=== PATIENT | female | born 1970 | race Caucasian/White ===

== ENCOUNTER → 2022-07-01 12:14 | Outpatient (CLI) | payer BC, SELFPAY ==
--- NOTE | ~2022-07-01 | MM_ITS ---
EXAMINATION: MM screening ollie BI w shweta HISTORY: Screening mammogram TECHNIQUE: Craniocaudal and mediolateral oblique 3-D tomosynthesis images were obtained and synthetic 2-D images were generated. CAD analysis was submitted and interpreted. COMPARISON: Numerous diagnostic right mammogram and complete right breast ultrasound BREAST PARENCHYMAL COMPOSITION: The breasts are heterogeneously dense, which may obscure small masses . FINDINGS: Stable fibroglandular asymmetry. There is no evidence of suspicious mass, calcification, or architectural distortion to suggest malignancy in either breast. There has been no suspicious interv al change. IMPRESSION: 1. No mammographic evidence of malignancy. 2. Recommend routine screening mammography in one year. BI-RADS Category 2: Benign finding(s). Reviewed, dictated and finalized at location A.
--- NOTE | ~2022-07-01 | DEXA_ITS ---
Bone Density Report Name: SAVANAH SANCHEZ I Age: 51 Sex: Female Ethnicity: White Date of : 1970 Indication: postmenopausal; screening for osteoporosis; height loss; Referring Provider: TAHIRA, IRIS Study: Bone densitometry was performed. Exam Date: July 01, 2022 Accession number: [id number] Bone Density: Region BMD T-score Z-score Classification AP Spine (L1-L4) 0.903 -1.3 -0.4 Osteopenia Femoral Neck (Left) 0.678 -1.5 -0.6 Osteopenia Total Hip (Left) 0.855 -0.7 -0.1 Normal Femoral Neck (Right) 0.713 -1.2 -0.3 Osteopenia Total Hip (Right) 0.903 -0.3 0.3 Normal Total Hip Mean 0.879 -0.5 0.1 Normal World Health Organization criteria for BMD impression classify patients as: Normal (T-score at or above -1.0), Osteopenia (T-score between -1.0 and -2.5), or Osteoporosis (T-score at or below -2.5). 10-year Fracture Risk(1): Major Osteoporotic Fracture 6.8% Hip Fracture 1.1% Reported Risk Factors: [place] (), Neck BMD=0.678, BMI=30.5, smoking, alcohol use (1) FRAX(R) Version 3.08. Fracture probability calculated for an untreated patient. Fracture probability may be lower if the patient has received treatment. Clinical Information Provided by Patient: Smokes Has 3 or more alcoholic drinks per day Patient maximum height was 64 Menopause Age: 47 No regular weight bearing exercise Drinks caffeinated beverages Onset of menses at age 12 Number of children 2 Impression: The patient has low bone mass, based on the Left Femoral Neck T-score. The patient has an estimated ten-year risk of hip fracture of 1.1% and an estimated ten-year risk of major fracture of 6.8%, based on the WHO FRAX algorithm. The patient has risk factors, including: smoking, excessive alcohol use. Discussion: BONE DENSITY IS LOW AT ONE OR MORE SKELETAL SITES. This patient's lowest T-score is low at one or more skeletal sites. It meets the World Health Organization's (WHO) criteria for ?low bone mass? (T-score between -1.0 and -2.5). The patient's 10-year risk of fracture as calculated by FRAX is less than the threshold where pharmacological therapy is recommended by the National Osteoporosis Foundation (NOF). However, all treatment decisions require clinical judgment and consideration of individual patient factors, including patient preferences, comorbidities, previous drug use, risk factors not captured in the FRAX model (e.g., frailty, falls, vitamin D deficiency, increased bone turnover, interval significant decline in bone density) and possible under or overestimation of fracture risk by FRAX. The patient should follow a healthful lifestyle (good nutrition with adequate calcium and vitamin D, and appropriate weight-bearing exercise). Follow-Up: Consider repeating this study in 2 to 3 years to reass
== END ==
PROVIDERS: PCP Family Medicine; Visit Provider Nurse Practitioner
DX: Z12.31 Encounter for screening mammogram for malignant neoplasm of breast (principal); Z78.0 Asymptomatic menopausal state; M85.88 Other specified disorders of bone density and structure, other site; M85.852 Other specified disorders of bone density and structure, left thigh; M85.851 Other specified disorders of bone density and structure, right thigh
CPT/HCPCS: 77063; 77067; 77080

== ENCOUNTER → 2022-08-26 14:43 | Outpatient (CLI) | payer BC, SELFPAY ==
--- NOTE | ~2022-08-26 | CT_ITS ---
EXAMINATION: CT abdomen pelvis wo con DATE: 08/26/2022 15:11 INDICATION: Ventral hernia without obstruction or gangrene TECHNIQUE: Computed tomography (CT) of the abdomen and pelvis was performed without intravenous contr ast. The dose-length product (DLP) was 791.25 mGy-cm. Automated exposure control and iterative recons truction technique were employed. COMPARISON: 01/11/2019, 07/05/2018 FINDINGS: The lung bases are clear. The heart size is normal. A 2.5 cm subcapsular mass in the right hepatic lobe has been previously demonstrated to represent hemangioma. The spleen, pancreas, gallblad sunitha, and adrenal glands are normal. The kidneys are unremarkable. No pathologically enlarged abdomina l or pelvic lymph nodes are identified. There is no free intraperitoneal gas or evidence of bowel obs truction. The appendix is normal. There is a small bowel surgical anastomosis in the left upper quadr ant. There is a small fat-containing midline ventral hernia with a 9 mm neck located 2.5 cm cranial t o the umbilicus. There is mild lumbar spondylosis. IMPRESSION: 1. Small fat-containing midline ventral hernia with a 9 mm neck located 2.5 cm cranial to the umbilic us. Reviewed, dictated and finalized at location B. UCT LEAD IMPRESSION: 1. Small fat-containing midline ventral hernia with a 9 mm neck located 2.5 cm cranial to the umbilicus.
== END ==
PROVIDERS: PCP Nurse Practitioner Family; Visit Provider Nurse Practitioner Family
DX: K43.9 Ventral hernia without obstruction or gangrene (principal)
CPT/HCPCS: 74176

== ENCOUNTER 2024-11-26 22:31 | Emergency (ER) | payer BC, SELFPAY ==
[2024-11-26] VITALS (7 sets, daily range): BP systolic 153–186; BP diastolic 93–97; PULSE 90–103; RESP 12–26; TEMP 36.4; O2SAT 100
--- NOTE | ~2024-11-26 | CT_ITS ---
CT of the Abdomen and Pelvis: Indication: Nausea, vomiting Technique: 2.5 mm axial scans were obtained through the abdomen and pelvis following intravenous adm inistration of 100 cc of Omnipaque 350. Dose reduction technique was used on this scan by utilizing a utomated exposure control and iterative reconstruction technique. The dose-length product (DLP) was 6 02.82 mGy-cm. COMPARISON: 08/26/2022 Findings: Scans through the lung bases are unremarkable. Stable hypodense lesion in the dome of liver with focal coarse calcification. Stable hypodense lesion peripherally in the right hepatic lobe measuring 2.4 cm in diameter (axial image 38). The spleen, pa ncreas, gallbladder, adrenals and kidneys are within normal limits. No evidence of aortic aneurysm. No lymphadenopathy. No bowel obstruction or bowel wall thickening. Small bowel anastomosis noted. Images through the pelvis were performed. Urinary bladder unremarkable. No pelvic mass seen. No ascit es. Impression: No acute abnormality evident. Stable hypodense hepatic lesions dating back to 2021, therefore most likely benign findings. Reviewed, dictated and finalized at location . N JOBS TRAINER Impression: No acute abnormality evident. Stable hypodense hepatic lesions dating back to 2021, therefore most likely elizabeth ign findings.
--- OUTSIDE RECORDS SUMMARY | 2024-11-26 22:32 | XMS_ITS | Data Portability ---
Author Organization [place] - [facility] [employer], Main Office Address [address] [place] [address] Assessment Encounter Date Assessment Date Assessment LastModified by Organization Details LastModified Time 01/28/2024 01/28/2024 the patient has recurrent bilateral knee pain and bilateral hip pain over the trochanteric bursa regions. She has trochanteric bursitis chronic in nature. Under sterile conditions I injected the patient's bilateral knee joints and the patient's bilateral hips into the trochanteric bursa with 4 cc 0.5% Marcaine and 20 mg of Kenalog each. The patient tolerated the procedures well. I will see her back as needed she will continue with current conservative measures call for any further problems difficulties or questions she voiced understanding agrees above plan. Not available 01/28/2024 12:05:24 04/04/2024 04/04/2024 R inguinal discomfort. No hernia defect or LAD appreciated on exam, but notable tenderness. Will order CT for further evaluation. Will f/u after results are obtained. Not available 04/04/2024 11:54:03 04/18/2024 04/18/2024 CT showed no hernia defect. Colonic narrowing with mesenteric LAD - recommended GI for colonoscopy. Patient was referred to GI. No indication for surgical intervention at this time. Likely MSK injury. RTC PRN if future concerns arise. Not available 04/18/2024 12:51:01 06/29/2024 06/29/2024 The patient has recurrent bilateral knee pain due to mild primary osteoarthritis with some narrowing of the medial and patellofemoral compartments. She has significant crepitation and chronic aching pain under sterile conditions I injected the patient's bilateral knee joints in the office with 4 cc 0.5% bupivacaine and 20 mg of Kenalog each. The patient tolerated procedures well. She also has chronic trochanteric bursitis both hips under sterile conditions I injected the patient's bilateral hips into the trochanteric bursa with 4 cc 0.5% bupivacaine and 20 mg of Kenalog each. The patient tolerated the procedures well. She will continue with current conservative measures call for any further problems difficulties or questions I will see her back as needed she voiced understanding and agrees with the above plan. Not available 06/29/2024 09:59:10 Plan of Treatment Reminders Order Date Submit Date Provider Last Modified By Organization Details Last Modified Time Details Appointments None recorded. Lab None recorded. Referral None recorded. Procedures injection/a spiration joint/bursa (PROC) - in office procedure, administere d by provider 2023 024 [email or web address] In-Office Order, Internal Use Only DO Not Attach Compendium DO Not Attach Compendium, Do Not Delete/merge, [id number] 11:22:24 injection/a spiration joint/bursa (PROC) - in office procedure, administere d by provider 2023 024 [email or web address] In-Office Order, Internal Use Only DO Not Attach Compendium DO Not Attach Compendium, Do Not Delete/merge, [id number] 11:22:24 colonoscopy procedure (PROC) 2023 024 [facility] (Pre-Screen), [address] [place], [address], 4 08:11:13 injection/a spiration joint/bursa (PROC) 2023 024 [email or web address] In-Office Order, Internal Use Only DO Not Attach Compendium DO Not Attach Compendium, Do Not Delete/merge, [id number] 4 09:42:39 injection/a spiration joint/bursa (PROC) 2023 024 [email or web address] In-Office Order, Internal Use Only DO Not Attach Compendium DO Not Attach Compendium, Do Not Delete/merge, [id number] 09:42:39 Surgeries None recorded. Imaging XR, knee 2023 [email or web address] [facility], [address], [place], [address], 4 10:53:35 Medication Orders Kenalog 10 mg/mL suspension for injection [address] [facility], [address] [place] [address], [address], 4 11:42:32 Marcaine (PF) 0.5 % (5 mg/mL) injection solution [address] [facility], [address] [place] [address], [address], 4 11:42:36 Kenalog 10 mg/mL suspension for injection [address] [facility], [address] [place] [address], [address], 4 11:42:32 Marcaine (PF) 0.5 % (5 mg/mL) injection solution [address] [facility], [address] [place] [address], [address], 4 11:42:36 Golytely 236 gram-22.74 gram-6.74 gram-5.86 gram oral solution 2023 024 NELLIE [facility], [address] [place] [address], [address], 4 12:25:14 bupivacaine HCl 0.5 % (5 mg/mL) injection solution 2023 024 [email or web address] [facility], [address] [place] [address], [place], [address], 4 10:01:29 Kenalog 10 mg/mL suspension for injection [address] [facility], [address] [place], [address], 4 10:01:29 bupivacaine HCl 0.5 % (5 mg/mL) injection solution [address] [facility], [address] [place], [address], 4 10:01:29 Kenalog 10 mg/mL suspension for injection [address] [facility], [address] [place] [address], [address], 4 10:01:29 Patient TargetsNo targets recorded. Patient Instructions Encounter Date Encounter Id Patient Instructions Last Modified By Organization Details Last Modified Time 06/21/2024 [id number] MÓNICA [email or web address] Not available 01/2024 11:50:08 PT WITH RLQ PAIN , ABNORMAL CT ABD . RECOMMEND A COLONOSCOPY . . Risks benefits and complications were explained to the pt. ( BLEEDING PERFORATION , INFECTION , ). PT VERBALIZES UNDERSTANDING AND IS WILLING TO PROCEDE . [email or web address] Not available 06/21/2024 11:50:42 Reason for Referral None Reported. Results Created Date Observation Date Name Description Value Unit Range Abnormal Flag Note LastModifiedBy Organization Detail LastModifiedTime 04/13/20 24 04/13/2024 CT, abdom en + pelvi s, w/o contr ast [facility] [address] [facility], [place] [address] Patien t Name: SAVANAH SANCHEZ ion #: [id number] Sex: F : 1970 2 Dictat ed By: Darryl Coto ms Attend ing Physic jade: JEN NIETO ng Physic jade: JEN NIETO Exam Date: 2023 09:40 AM Exam Name: CT ABDOME N PELVIS WO Admitt ing Diagno sis(es ): Exam: CT ABDOME N PELVIS WO Histor y: Abdome n pain Compar kari Study: CT of the abdome n pelvis dated 2021. Techni que: Multid etecto r spiral CT of the abdome n and pelvis was perfor med from lung bases to pubic symphy sis. Imagin g was perfor med withou t intrav enous contra st. Borden l and sagitt al multip lanar reform ats were obtain ed from the axial data set by the techno logist . Radiat ion Dose : 1. Abdome n/Pelv is: CTDIvo l 15.5 mGy, DLP 765.2 mGy*cm . Findin gs: Evalua tion of vascul ature and solid organs is limite d due to lack of intrav enous contra st use. Lung Bases: Lung bases are clear. Visual ized portio ns of the heart and perica rdium are unrema rkable . Liver: The liver measur es 18.3 cm in length . There is a 1.6 cm low attenu ating lesion in the right hepati c lobe. This is stable since prior CT from 2021. Gallbl adder and Biliar y Tree: The gallbl adder is unrema rkable No intrah epatic or extrah epatic biliar y ductal dilata tion. Spleen : Unrema rkable Page 1 [facility] [address] [address] Patien t Name: SAVANAH SANCHEZ Access ion #: [id number] Sex: F : 1970 2 Dictat ed By: Darryl Coto ms Attend ing Physic jade: TAHIR BURNETTE ng Physic jade: JEN NIETO Exam Date: 2023 09:40 AM Exam Name: CT ABDOME N PELVIS WO Admitt ing Diagno sis(es ): Pancre as: The pancre as is grossl y unrema rkable . Adrena l Glands : Unrema rkable Kidney s: Kidney s are unrema rkable withou t calcul i or hydron ephros is. GI tract: The stomac h is grossl y normal in appear ance. No eviden ce of small bowel wall thicke reid or abnorm al dilata tion to sugges t bowel obstru ction. There is contra st opacif icatio n of the small bowel loops, as well as the colon. Mild circum ferent ial narrow ing of the ascend ing colon. The append ix is normal in calibe r. Perito neum/m esente ry/ret roperi toneum . No eviden ce of free intrap eriton eal air. No ascite s. There is an increa sed number of mesent roc lymph nodes which are mildly promin ent, for exampl e in the right lower quadra nt measur ing up to 9 mm in short axis. Abdomi nal Wall: Unrema rkable . Vascul ature: The visual ized abdomi nal aorta is normal in size and calibe r. Evalua tion of abdomi nal and pelvic vessel s is limite d due to lack of intrav enous contra st. Urinar y Bladde r: Grossl y unrema rkable for degree of disten tion. Pelvic Organs : Unrema rkable Muscul oskele ana m: No aggres sive focal bony lesion s, acute fractu res or disloc ation. IMPRES MARYJANE: 1. Mild circum ferent ial narrow ing of the ascend ing colon may be due to underd istent ion. Howeve r, an underl helen lesion is not exclud ed. Correl ation with colono scopy is sugges vicki for more sensit sylvain evalua tion of the colon. 2. Increa sed number of mesent roc lymph nodes measur ing up to 9 mm in the right lower quadra nt. Metast atic adenop athy not exclud ed. 3. 1.6 cm low attenu ating lesion in the right hepati c lobe, stable since prior CT of the abdome n pelvis 2021. Electr onical ly Signed by: Darryl Coto ms at 2023 11:18: 36 AM Page [address] (Imaging) [address] [place], [address], 04/13/2024 12:49:00 04/13/20 24 04/13/2024 CT, abdom en + pelvi s, w/ contr ast No observ ation record ed. [address] [place], [address], 04/13/2024 12:48:29 06/29/20 24 XR, knee No observ ation record ed. [email or web address] [facility] [address], [place], [address], 06/29/2024 10:00:02 Result Notes None recorded. Problems Name Problem SNOMED Code Status Onset Date Resolution Date Notes Provider Name and Address Organization Details Recorded Time Contusion of left hip region 1271969830192 9102 Active 2021 Not Available [facility] 3 07:43:47 Bilateral trochanter ic bursitis 5140676894715 9109 Active 2021 Not Available [facility] 3 07:43:47 Bilateral hip joint pain 0105225395955 9100 Active 2021 Not Available [facility] 3 07:43:47 Chondromal acia of right patella 4395668325000 9108 Active 2021 Not Available [facility] 3 07:43:47 Gastroente ritis 67930889 Active Not Available [facility] 3 07:43:47 Acute low back pain 087338598 Active 2021 Not Available [facility] 3 07:43:47 Chondromal acia of left patella 7014111368751 06 Active 2021 Not Available [facility] 3 07:43:47 Strangulat ed hernia of anterior abdominal wall 036477095 Active Not Available [facility] 3 07:43:47 Pain of right knee joint 3603218443683 00 Active 2021 Not Available [facility] 3 07:43:47 Pain of left knee joint 5259811152634 07 Active 2021 Not Available [facility] 3 07:43:48 Hyperlipid emia 28915160 Active 2020 Not Available [facility] 3 07:43:48 Essential hypertensi on 63895459 Active 2020 Not Available [facility] 3 07:43:48 Bilateral osteoarthr itis of knees 3965568071124 07 Active 2022 Catalina guerra, [place] [facility] 3 09:28:57 Itching of skin 465775446 Active 2022 ENOCH Hylton [address], [place], [address] , [place] [facility] 3 18:03:59 Eruption 693307522 Active 2022 Supriya Middleton MD [address], [place], [address] , [place] [facility] 3 13:05:08 Right inguinal pain 0457416561461 9109 Active 2023 Logan dooley MD [address], [address], [place], [address] , [place] [facility] 4 12:30:25 Abdominal pain 62264506 Active 2023 Logan dooley MD [address], [place], [address] , [place] [facility] 4 14:30:27 CT of abdomen abnormal 6753994219670 9107 Active 2023 Jane Reyes MD [address], [place], [address] , [place] [facility] 4 11:49:38 Problem Notes None recorded. Procedures Surgical History Date Name Laterality Status Provider Name and Address Organization Details Recorded Time Hernia Surgery completed Not Available [facility] 12/16/2022 07:41:21 Hernia repair w/mesh completed Not Available [facility] 12/16/2022 07:41:21 section completed Not Available [facility] 12/16/2022 07:41:21 Imaging Results Imaging Date Name Status LastModified by Organiz ation Details LastModified Time 04/13/2024 CT, abdomen + pelvis, w/o contrast completed [address] (Imaging) [address] [place], [address], 04/13/2024 12:49:00 04/13/2024 CT, abdomen + pelvis, w/ contrast completed [address] [place], [address], 04/13/2024 12:48:29 06/29/2024 XR, knee completed [email or web address] [facility] [address] [facility] [address], [place], [address], 06/29/2024 10:00:02 Procedure Notes None recorded. Medical Equipment None Reported. Allergies Allergen ID Allergen Name Allergen Category Reaction Reaction Severity Criticality Documentation Date Start Date Code Code System Note Provider Name and Address Organization Details Recorded Time 21045 Dilantin medicatio n Not available Not available Not available 03/12/2023 0 RxNorm Fifi Shields RN [facility], [place] [facility] 08:58:32 Medications Name Sig Start Date Stop Date Status Note LastModified by Organization Details LastModified Time compounded medication Take one tab SL daily 06/21 completed Not Available Not Available Not Available compounded medication Dissolve one jonatan UNDER TONGUE in THE morning AND wait 30 minutes TO eat OR drink active Not Available Not Available No t Available semaglutide 500mcg methylcobal gilmore 0.1mg tabs TAKE ONE TABLET UNDER TONGUE DAILY 06/21 completed Not Available Not Available Not Available semaglutide 500mcg jonatan (0.5ml) Dissolve one jonatan UNDER TONGUE in THE morning AND wait 30 minutes TO eat OR drink 06/21 completed Not Available Not Available Not Available semaglutide 500mcg methylcobal gilmore 0.1mg jonatan (0.5ml) Dissolve one jonatan UNDER TONGUE in THE morning AND wait 30 minutes TO eat OR drink 06/21 completed Not Available Not Available Not Available compounded medication Take one tab SL daily 06/21 completed Not Available Not Available Not Available clonidine HCl 0.1 mg tablet 03/19 completed Not Available Not Available Not Available prednisone 10 mg tablet TAKE 1 TABLET BY MOUTH THREE TIMES DAILY FOR 3 DAYS, THEN TAKE 1 TAB TWICE DAILY FOR 2 DAYS, AND THEN TAKE 1 TAB ONCE DAILY FOR 1 DAY 05/25 completed Not Available Not Available Not Available atorvastati n 10 mg tablet 03/19 completed Not Available Not Available Not Available valacyclovi r 1 gram tablet TAKE 1 TABLET BY MOUTH EVERY 12 HOURS FOR 7 DAYS 06/21 completed Not Available Not Available Not Available meloxicam 15 mg tablet TAKE 1 TABLET BY MOUTH ONCE DAILY active Not Available Not Available No t Available ondansetron HCl 4 mg tablet 03/19 completed Not Available Not Available Not Available bupivacaine HCl 0.5 % (5 mg/mL) injection solution Take 40 mg by injection route. 2023 active Not Available Not Available Not Avai lable prednisone 20 mg tablet TAKE 3 TABLETS BY MOUTH ONCE DAILY FOR 3 DAYS, THEN TAKE 2 TABS ONCE DAILY FOR 3 DAYS, THEN TAKE 1 TAB ONCE DAILY FOR 3 DAYS, AND THEN TAKE 1/2 TAB ONCE DAILY FOR 3 DAYS 06/21 completed Not Available Not Available Not Available triamcinolo ne acetonide 0.1 % topical cream APPLY TOPICALLY IN A THIN LAYER TO THE AFFECTED AREA(S) TOPICALLY TWICE PER DAY active Not Available Not Available No t Available spironolact one 25 mg tablet 03/19 completed Not Available Not Available Not Available prednisone 10 mg tablets in a dose pack Take 1 tab by mouth, 3 times a day for 3 daysTake 1 tab by mouth 2 times a day for 2 daysTake 1 tab by mouth once a day for 1 day 09/17 completed Not Available Not Available Not Available oxycodone-a cetaminophe n 5 mg-325 mg tablet TAKE 1 TABLET BY MOUTH EVERY 4 TO 6 HOURS NEEDED 02/18 completed Not Available Not Available Not Available dicyclomine 20 mg tablet TAKE 1 TABLET BY MOUTH THREE TIMES DAILY active Not Available Not Available No t Available Kenalog 10 mg/mL suspension for injection Take 40 mg by injection route. [address] [facility]: [phone] Not Available Not Available Not Available triamcinolo ne acetonide 40 mg/mL suspension for injection Take 40 mg by injection route. 01/28 completed Not Available Not Available Not Available pantoprazol e 40 mg tablet,linda yed release 03/19 completed Not Available Not Available Not Available naproxen sodium 550 mg tablet TAKE 1 TABLET BY MOUTH TWICE DAILY NEEDED WITH FOOD FOR PAIN 01/28 completed Not Available Not Available Not Available diclofenac sodium 75 mg tablet,linda yed release Take 1 tablet by mouth twice daily 02/18 completed Not Available Not Available Not Available irbesartan 150 mg tablet TAKE 1 TABLET BY MOUTH ONCE DAILY active Not Available Not Available No t Available methylpredn isolone 4 mg tablets in a dose pack Take 6 tabs day one, 5 tabs day two, 4 tabs day three, 3 tabs day four, 2 tabs day five, 1 tab day six 05/25 completed Not Available Not Available Not Available ondansetron 4 mg disintegrat ing tablet 03/19 completed Not Available Not Available Not Available loratadine 10 mg tablet TK 1 T PO D 03/19 completed Not Available Not Available Not Available clobetasol- emollient 0.05 % topical cream USE CREAM ON THE AFFECTED AREA BID AFTER COMPLETIN G THE PREDNISON E. DO NOT APPLY TO THE FACE OR IN THE EYES. active Not Available Not Available No t Available rosuvastati n 10 mg tablet TAKE 1 TABLET BY MOUTH ONCE DAILY active Not Available Not Available No t Available rosuvastati n 20 mg tablet TAKE 1 TABLET BY MOUTH ONCE DAILY active Not Available Not Available No t Available Marcaine (PF) 0.5 % (5 mg/mL) injection solution Take 40 mg by injection route. 06/21 completed Not Available Not Available Not Available Co Q-10 200 mg capsule Take by oral route. 04/13/ 2022 05/04 /2023 completed Not Available Not Available Not Available Euflexxa 10 mg/mL (mw 2.4-3.6 million) intra-artic ular syringe Inject 2.5 mL by intra-art icular route for 35 days. 06/21 completed Not Available Not Available Not Available Fish Oil 1200 mg 02/18 completed Not Available Not Available Not Available lidocaine (PF) 20 mg/mL (2 %) injection solution Take 80 mg by injection route. 02/18 completed Not Available Not Available Not Available lidocaine (PF) 5 mg/mL (0.5 %) injection solution Take 60 mg by injection route. 02/18 completed Not Available Not Available Not Available evening primrose oil-linolei c acid-gamole mitchell acid 1,000 mg capsule Take by oral route. 02/18 completed Not Available Not Available Not Available peg 3350-electr olytes 236 gram-22.74 gram-6.74 gram-5.86 gram solution USE DIRECTED active Not Available Not Available No t Available ketorolac 30 mg/mL injection solution Inject 1 mL every 6 hours by intraveno us route. 01/28 completed Not Available Not Available Not Available Probiotic 30billion 02/18 completed Not Available Not Available Not Available ropivacaine (PF) 5 mg/mL (0.5 %) injection solution in office 06/[address] [facility] [phone] Not Available Not Available Not Available Vuity 1.25 % eye drops INSTILL 1 DROP INTO EACH EYE TWICE DAILY 06/21 completed Not Available Not Available Not Available Vitals Date Recorded Body height Body mass index (BMI) Body weight Provider Name and Address Organization Details Last Updated DateTime 01/28/2024 162.56 cm 25.7 kg/m2 33004.86 g BEATRIZ Ureña [place] [employer] [facility] 01/28/2024 11:15:10 Date Recorded Body height Body mass index (BMI) Body weight Heart rate Respiratory rate Oxygen saturation Oxygen saturation in Arterial blood by Pulse oximetry Systolic blood pressure Diastolic blood pressure Provider Name and Address Organization Details Last Updated DateTime 162.56 cm 25.7 kg/m2 01893.8 6 g 88 /min 14 /min 98 % 98 % 120 mm[Hg] 80 mm[Hg] Geeta Clyde [place] [employer] [facility] 4 11:30:17 Date Recorded Body height Body mass index (BMI) Body weight Body temperature Respiratory rate Oxygen saturation Oxygen saturation in Arterial blood by Pulse oximetry Systolic blood pressure Diastolic blood pressure Provider Name and Address Organization Details Last Updated DateTime 4 162.56 cm 25.7 kg/m2 74987.8 6 g 98.6 [degF] 14 /min 98 % 98 % 122 mm[Hg] 80 mm[Hg] Jennifer Lira MA [place] [employer] [facility] 4 11:01:08 Date Recorded Body height Body mass index (BMI) Body weight Heart rate Oxygen saturation Oxygen saturation in Arterial blood by Pulse oximetry Systolic blood pressure Diastolic blood pressure Provider Name and Address Organization Details Last Updated DateTime 4 162.56 cm 25.7 kg/m2 10083.8 6 g 86 /min 99 % 99 % 120 mm[Hg] 82 mm[Hg] JIAN Maki [place] [employer] [facility] [employer] [facility] 4 11:41:32 Date Recorded Body height Body mass index (BMI) Body weight Provider Name and Address Organization Details Last Updated DateTime 06/29/2024 162.56 cm 28.3 kg/m2 56062.74 g Valorie Marrero CNA [employer] [facility] [employer] 06/29/2024 09:33:45 Social History Question Answer Notes LastModified by Organizat ion Details LastModified Time Tobacco Smoking Status Current Every Day Smoker quit 2010 cigs vapes KATIE UreñaA null, [facility] [employer] 06/29/2024 09:35:02 Do You Have An Advance Directive? No [id number] Information not available 12/16/2022 What Is Your Level Of Alcohol Consumption? Moderate [id number] Information not available 12/16/2022 What Is Your Level Of Caffeine Consumption? Moderate [id number] Information not available 12/16/2022 In The 14 Days Before Symptom Onset, Have You Had Close Contact With A Laboratory-confir med COVID-19 While That Case Was Ill? No [id number] Information not available 12/16/2022 In The 14 Days Before Symptom Onset, Have You Had Close Contact With A Person Who Is Under Investigation For COVID-19 While That Person Was Ill? No [id number] Information not available 12/16/2022 What Type Of Diet Are You Following? REGULAR [id number].06259 [id number] Information not available 12/16/2022 Do You Or Have You Ever Used E-cigarettes Or Vape? Current User Of Electronic Cigarettes [id number] Information not available 12/16/2022 Are There Any Guns Present In Your Home? No MIGRATION.24549 [id number] Information not available 12/16/2022 Do You Have A Medical Power Of Qualitative Field Project Manager? No [id number] [id number] Information not available 12/16/2022 What Was The Date Of Your Most Recent Tobacco Screening? 03/19/2021 [id number].22032 [id number] Information not available 12/16/2022 Do You Feel Stressed (tense, Restless, Nervous, Or Anxious, Or Unable To Sleep At Night)? [id number] [email or web address] Information not available 03/12/2023 Do You Use Sunscreen Routinely? No MIGRATION.15124 [id number] Information not available 12/16/2022 Have You Recently Traveled Abroad? No MIGRATION.19224 [id number] Information not available 12/16/2022 Do You Have Any Dietary Restrictions? No MIGRATION.99863 05020 Information not available 12/16/2022 Do You Or Have You Ever Used Any Other Forms Of Tobacco Or Nicotine? Yes [email or web address] Information not available 02/18/2023 Sex: Unknown Functional Status None recorded. Mental Status None recorded. Family History Relationship Description Onset Age of this Age Resolved Age Notes LastModified by Organization Details LastModified Time Mother Chronic obstructive pulmonary disease [id number] Not available 12/16/2022 07:41:21 Father Diabetes mellitus [id number] Not available 12/16/2022 07:41:21 Father Heart disease [id number] Not available 12/16/2022 07:41:21 Father Parkinson's disease [id number] [id number] Not available 12/16/2022 07:41:21 Father Family history of stroke [id number] [id number] Not available 12/16/2022 07:41:21 Maternal Grandfather Malignant tumor of lung [id number] Not available 12/16/2022 07:41:21 Paternal Grandfather Malignant tumor of lung [id number].101 [id number] Not available 12/16/2022 07:41:21 Mother Hypertensive disorder [email or web address] Not available 2022 10:10:55 Medical History Condition Response BLINDNESS N RHEUMATIC FEVER N KIDNEY STONES N BLADDER PROBLEMS N MRSA N OTHER # 1 N POLIO N LUNG DISEASE/DISORDER N COPD N RADIATION / CHEMOTHERAPY N Other # 2 N BLOOD DISEASES N SURGERY N EAR OR HEARING PROBLEMS N MUMPS N FEMALE PROBLEMS / INFECTIONS N DEPRESSION (INCLUDING POST ) N BOWEL PROBLEMS N STROKE/TIA N THYROID DISEASE N ULCERS N BENIGN PROSTATIC HYPERPLASIA N MEASLES N CERVICALGIA N TB SKIN TEST N MYOCARDIAL INFARCTION N OBESITY N PARAPELGIA N GERD/NAUSEA N ANEURYSM N URINARY/BLADDER/KIDNEY PROBLEMS N CORONARY ARTERY DISEASE (CAD) N MENIERE'S DISEASE N ADDICTION CONCERNS N ENDOMETRIOSIS N USE OF BLOOD THINNERS N SKIN PROBLEMS N EMPHYSEMA N GASTROINTESTINAL DISORDER N MUSCLE,JOINT OR BONE PROBLEMS N GASTROINTESTINAL BLEEDING N BLOOD CLOTS N ASTHMA N CATARACTS N ERECTILE DYSFUNCTION N GI PROBLEMS N CHF N Low Testosterone N NEUROPATHY N INFERTILITY N AIDS/HIV N FRACTURES N CHEMOTHERAPY / RADIATION N VISION/EYE PROBLEMS N LIVER DISEASE N MALE HYPOGONADISM N HYPERTENSION N TOURETTE'S N ANXIETY DISORDER N BLOOD TRANSFUSION N ANEMIA/BLOOD DISORDER N CHRONIC EAR INFECTIONS N BRONCHITIS N TUBERCULOSIS N GLAUCOMA N FOOT PROBLEM N DIVERTICULITIS N SLEEP APNEA N CHICKENPOX N ALLERGIES/HAYFEVER N INFECTIOUS DISEASE N PROSTATE N HEART ARRHYTHMIA N INSOMNIA N HIGH CHOLESTEROL / HYPERLIPIDEMIA N EYE PROBLEMS N HYPERTHYROIDISM N EATING DISORDER N EDEMA N CHRONIC PAIN SYNDROME N CAROTID BLOCKAGE N CONSTIPATION N BACK / NECK PROBLEMS N HAVE YOU BEEN HOSPITALIZED OR SEEN IN [facility] IN THE PAST YEAR ? N ATHEROSCLEROSIS N BREAST PROBLEMS N DIALYSIS N ECZEMA N FIBROMYALGIA N OSTEOPOROSIS N ARTHRITIS N NO SIGNIFICANT PAST MEDICAL HISTORY N APPENDICITIS N DIABETES, TYPE N BAD TEETH N HEARTBURN / REFLUX N ADD/ADHD N AUTISM SPECTRUM DISORDER (ASD) N HEPATITIS / LIVER DISEASE N PULMONARY DISEASE N GOUT N SLEEP DISORDER N ALZHEIMER'S DISEASE N PAIN N DEMENTIA N HERPES N SEIZURES/EPILEPSY N HEADACHES/MIGRAINES N VASCULAR DISEASE N PACEMAKER N DIZZINESS N HEART DISEASE/HEART PROBLEMS N KIDNEY DISEASE N SCARLET FEVER N MULTIPLE SCLEROSIS N DEVELOPMENTAL OR BEHAVIORAL DISORDERS N MENTAL DISORDER/ILLNESS N CANCER: SPECIFY N CARDIAC ARRHYTHMIA N PNEUMONIA N ATRIAL FIBRILLATION N Gall Stones N PULMONARY EMBOLISM N AUTOIMMUNE DISEASE N Gynecological History Statement/Question Response Menses Monthly N Current Control Method Menopause Obstetrics History GPAL:G 2 P 0 0 0 0 Past Encounters Encounter ID Performer Location Encounter Start Date Encounter Closed Date Diagnosis/Indication Diagnosis SNOMED-CT Code Diagnosis ICD10 Code Diagnosis Note [id number] [facility] [address] [place] [address] 03/19/2021 00:00:00 04/09/2021 10:39:30 [id number] [facility] [address] [facility] [place] [address] 04/16/2021 00:00:00 04/16/2021 10:51:16 [id number] [facility] [address] [place] [address] 01/09/2022 00:00:00 01/09/2022 19:05:26 [id number] [facility] [place] [address] [place] [address] 01/28/2022 00:00:00 01/28/2022 13:26:35 [id number] [facility] [place] [address] [place] [address] 03/11/2022 00:00:00 03/11/2022 10:54:15 [id number] [facility] [place] [address] [place] [address] 04/03/2022 00:00:00 04/03/2022 14:10:07 [id number] [facility] [address] [place] [address] 08/13/2022 00:00:00 08/13/2022 16:49:34 [id number] [facility] [place] [address] [place] [address] 08/13/2022 00:00:00 08/13/2022 10:43:02 [id number] [facility] [place] [address] [place] [address] 08/17/2022 00:00:00 08/17/2022 11:40:50 [id number] [facility] [address] [address] 09/17/2022 00:00:00 09/17/2022 14:09:35 [id number] [facility] [address] [address] 10/08/2022 00:00:00 10/08/2022 12:49:47 [id number] [facility] [place] [address] [place] [address] 10/08/2022 00:00:00 10/08/2022 10:58:12 [id number] KIRSTIN Barker [facility] [place] [address] [place] [address] 01/18/2023 09:00:43 01/18/2023 09:56:42 Bilateral trochanteric bursitis [id number] M70.61 M70.62 Chondromal acia of right patella 3652346063 1128961 M22.41 Chondromal acia of left patella 8848178444 99515 M22.42 Bilateral hip joint pain 9836592749 9594052 M25.551 M25.552 Pain of le ft knee joint 4464983755 19532 M25.562 Bilateral osteoarthritis of knees 5838957603 07426 M17.0 [id number] KIRSTIN Barker [facility] [place] [address] [place] [address] 02/18/2023 09:50:41 02/18/2023 11:59:26 Bilateral trochanteric bursitis [id number] 7124007 M70.61 M70.62 Chondromal acia of right patella 5990541475 0872325 M22.41 Chondromal acia of left patella 3888572283 34582 M22.42 Bilateral hip joint pain 9040143598 0210649 M25.551 M25.552 Pain of le ft knee joint 1112147484 85297 M25.562 Bilateral osteoarthritis of knees 8477795260 19917 M17.0 [id number] KIRSTIN Barker [facility] [place] [address] [place] [address] 02/25/2023 10:03:05 02/25/2023 10:55:00 Bilateral osteoarthritis of knees 6440457751 52808 M17.0 Pain of le ft knee joint 8334721235 33926 M25.562 Bilateral hip joint pain 4386524853 8460701 M25.551 M25.552 Bilateral trochanteric bursitis 6776490605 3698218 M70.61 M70.62 Chondromal acia of left patella 1792887875 59502 M22.42 Chondromal acia of right patella 1361588608 1734247 M22.41 [id number] KIRSTIN Barker [facility] [place] [address] [place] [address] 03/04/2023 09:58:08 03/04/2023 10:59:11 Bilateral osteoarthritis of knees 0630903603 10333 M17.0 Bilateral trochanteric bursitis 5544518763 8989806 M70.61 M70.62 Chondromal acia of right patella 0577890225 6005124 M22.41 Chondromal acia of left patella 3947151453 46396 M22.42 Bilateral hip joint pain 9445106928 1449346 M25.551 M25.552 Pain of le ft knee joint 2843301263 45645 M25.562 Pain of ri ght knee joint 2437060702 49093 M25.561 [id number] ENOCH Hylton [facility] [place] [facility] [address] [place] [facility] [address] [place] [address] 03/12/2023 08:51:37 03/12/2023 12:00:38 Adult health examination 851991423 Z13.29 Z13.220 Z13.89 Z13.1 Z00.01 Adult Health Exam--Due for routine labs (CBC, CMP, Lipids, HgA1C, TSH, UA).--Mamm ogram ordered--C olon screening up to date per patient, cologsandritaevangelina wnl (2021)--Maurice ne Density at 64yo--PAP/ WWE-recomm ended. Pt to schedule-- Tdap recommende d q 10 years--Flu recommende d yearly--CO VID-19 recommende d--Encoura ged yearly dental, vision, hearing screenings Screening mammography 24 461219 Z12.31 Body mass index 25-29 - overweight 641370835 Z68.28 ChronicNot improved despite report of dieting/li festyle changes.Ad vised eat 3 meals daily with 1-2 healthy snacks, eliminate caloric drinks, no grazing btw meals, reduce packaged foods, portion control, modificati on of cooking style, low fat/low sugar items, 30 minutes of exercise at least 3x/week, reduce emotional/ stress eating, increase fruits/veg etables, take 15-20 minutes to eat.Encour aged pt to keep food diary for the next 2 weeks. Try to keep daily calorie count btw 9300-5740 calories. Gave meal planning handout. May need to consider referral to director of premium seat sales/ nutritioni st as well. Pt advised she does not currently qualify for Ozempic or other commercial ly available formulatio ns of semaglutid e since she is not diabetic and BMI is less than 30. Pt indicates she is unable to exercise regularly d/t chronic multiple joint pain. Pt reports she struggles with maintainin g diet-contr ol. Will give trial of compounded semaglutid e, pt aware this is not covered by insurance. Hyperlipidemia 33022655 E78.5 Discussed need for regular exercise, increase intake of water/vege tables/fib er. Decrease the amount of greasy/fat ty/fried foods in diet. Consider/s tart taking a daily fish oil supplement .Rosuvasta tin 20mg daily Essential hypertension 78701607 I10 StableAsym ptomatic at this timeEncour aged pt to increase water intake, reduce caffeine intake, exercise regularly, decrease/e liminate sodium intake, work on weight loss and stress reductionI rbesartan 150mg daily [id number] ENOCH Hylton [facility] elver [address] [facility] [address] [place] [address] 03/31/2023 10:49:24 03/31/2023 11:27:36 Body mass index 25-29 - overweight 240822845 Z68.28 ChronicNot improved despite report of dieting/li festyle changes.Ad vised eat 3 meals daily with 1-2 healthy snacks, eliminate caloric drinks, no grazing btw meals, reduce packaged foods, portion control, modificati on of cooking style, low fat/low sugar items, 30 minutes of exercise at least 3x/week, reduce emotional/ stress eating, increase fruits/veg etables, take 15-20 minutes to eat.Encour aged pt to keep food diary for the next 2 weeks. Try to keep daily calorie count btw 7021-2364 calories. Gave meal planning handout. May need to consider referral to director of premium seat sales/ nutritioni st as well. Pt advised she does not currently qualify for Ozempic or other commercial ly available formulatio ns of semaglutid e since she is not diabetic and BMI is less than 30. Pt indicates she is unable to exercise regularly d/t chronic multiple joint pain. Pt reports she struggles with maintainin g diet-contr ol. Pt starting compounded semaglutid e 500mcg SL daily Hyperlipidemia 80672077 E78.5 Well controlled lipid panel wnl (03/12/23)D iscussed need for regular exercise, increase intake of water/vege tables/fib er. Decrease the amount of greasy/fat ty/fried foods in diet. Consider/s tart taking a daily fish oil supplement .Rosuvasta tin 20mg daily Essential hypertension 20049953 I10 StableAsym ptomatic at this timeEncour aged pt to increase water intake, reduce caffeine intake, exercise regularly, decrease/e liminate sodium intake, work on weight loss and stress reductionI rbesartan 150mg daily Screening mammography 24 754107 Z12.31 Pt encouraged to schedule appt. [id number] KIRSTIN Barker [facility] [place] [address] [place] [address] 05/06/2023 10:00:05 05/06/2023 10:39:53 Bilateral osteoarthritis of knees 9330787530 08069 M17.0 Bilateral trochanteric bursitis 4393736820 2525871 M70.61 M70.62 Chondromal acia of right patella 6723023545 9710489 M22.41 Chondromal acia of left patella 8185179685 64519 M22.42 Bilateral hip joint pain 0879389720 3047492 M25.551 M25.552 Pain of ri ght knee joint 1810653338 25480 M25.561 Pain of le ft knee joint 8614648286 81226 M25.562 [id number] Supriya Middleton MD [facility] [address] [facility] [address] [place] [address] 05/25/2023 12:37:11 05/25/2023 13:20:35 [facility] 218081363 R21 ?shinglesG entle soap and waterpredn isone taper with food, avoid other nsaids while takingvala cyclovir 1 gram po bid x 7 daysdermat ology referral givendiscu ssed scratch/it ch cycle, try to avoid scratching call/retur n if no improvemen t in 1-2 weeks or sooner if neededrevi ewed s/s that warrant urgent/tatum rgent eval in meantime [id number] KIRSTIN Barker [facility] [address] [place] [address] 07/13/2023 09:51:13 07/13/2023 10:17:36 Bilateral osteoarthritis of knees 7902544959 96962 M17.0 Bilateral trochanteric bursitis 1659610131 3470730 M70.61 M70.62 [id number] KIRSTIN Barker[facility] [place] [address] [place] [address] 10/22/2023 10:27:37 10/22/2023 13:43:01 Bilateral osteoarthritis of knees 6348933708 83060 M17.0 Bilateral trochanteric bursitis 5998163117 6296712 M70.61 M70.62 Bilateral hip joint pain 1666316269 0950109 M25.551 M25.552 Pain of ri ght knee joint 9040990471 33539 M25.561 Pain of le ft knee joint 3151260091 39660 M25.845 [id number] KIRSTIN Barker [facility] [place] [address] [place] [address] 01/28/2024 11:10:12 01/28/2024 12:16:33 Bilateral osteoarthritis of knees 6774938162 89251 M17.0 Bilateral trochanteric bursitis 9208195067 9399650 M70.61 M70.62 Bilateral hip joint pain 1615462532 0240505 M25.551 M25.552 Pain of ri ght knee joint 5723030851 73366 M25.561 Pain of le ft knee joint 1478502732 08116 M25.600 [id number] Logan dooley MD [facility] General Surgery [address] [address] 04/04/2024 11:07:06 05/04/2024 13:24:31 Right inguinal pain 0371860675 5312900 R10.31 [id number] Logan dooley MD [facility] General Surgery [address] [address] 04/18/2024 10:38:50 04/19/2024 16:32:16 Abdominal pain 85113982 R10.9 [id number] Jane Reyes MD [facility] General Surgery [address] [address] 06/21/2024 11:36:40 06/21/2024 12:20:42 CT of abdomen abnormal 0497317765 3318503 R93.5 [id number] KIRSTIN Barker [facility] [place] [address] [place] [address] 06/29/2024 09:21:31 06/29/2024 10:53:35 Bilateral osteoarthritis of knees 8728801650 39566 M17.0 Bilateral trochanteric bursitis 5151876906 0028368 M70.61 M70.62 Bilateral hip joint pain 2912991120 1413197 M25.551 M25.552 Pain of ri ght knee joint 5064640476 75841 M25.561 Pain of le ft knee joint 8107610036 12385 M25.562 Health Concerns Section Related Observation LastModified by Organization Detai ls LastModified Time None Recorded Concern Status LastModified by Organization Details LastModified Time None Recorded Advance Directives Directive N: Payers Encounter Date Sequence Insurance Name Policy Number Policy Jasso Covered Member ID Jasso Member ID Guarantor Name 01/28/2024 1 [id number] Saavnah I Joann [id number] Savanah I Joann 04/04/2024 1 [id number] Savanah I Joann [id number] Savanah I Joann 04/18/2024 1 [place] [id number] Savanah I Joann [id number] Savanah I Joann 06/21/2024 1 [place] [id number] Savanah I Joann [id number] Savanah I Joann 06/29/2024 1 [place] [id number] Savanah I Joann [id number] Savanah I Joann Notes Date Note Type Note Provider Name and Address Organization Details Recorded Time 01/28/2024 text/html Patient returns with bilateral knee pain and bilateral hip trochanteric pain. She comes in every few months for cortisone injections. She has chronic trochanteric bursitis with recurrence of pain. She does take meloxicam daily this helps somewhat but she does lots of standing walking this aggravates her symptoms. She also has moderate primary osteoarthritis both knees with narrowing in the medial compartments and significant narrowing of the patellofemoral articulations of both knees. Denies any new trauma injury to either or any of the sites above. She is getting ready to go to [place] so she would like some shots for pain relief. She has talked about joint gel shots we could do this next time it has been more than 6 months since she has had those and they worked well for her also. Today she has no other new complaints. KIRSTIN Barker [address] [facility], [facility] [address], [place], [address], [facility] [employer] 01/28/2024 12:05:48 04/04/2024 text/html Patient presents to discuss R groin pain. States she has been lfting/moving furniture and noticed soreness of the R groin. This occurred about 3 weeks ago and is continuing to be uncomfortable. Notes pain worsens with heavy lifting or when sitting up/lying down. Denies pain when completely at rest. No bulge noticed. No changes in bowel habits. No fevers. No recent illnesses. Logan Vernon MD [address] [facility], [place] [address], [place], [address], [email or web address] [facility] 04/05/2024 12:30:34 04/18/2024 text/html Patient presents to discuss R groin pain. Pain somewhat improved. Denies pain when completely at rest. No bulge noticed. No changes in bowel habits. No fevers. No recent illnesses.CT showed no defect. Colonic narrowing, mass not excluded per CT and mesenteric lymphadenopathy. Recommended colonoscopy. Logan Vernon MD [address] [facility], [facility] [address], [place], [address], [email or web address] 04/18/2024 14:30:44 06/21/2024 text/html SAVANAH WAS SEEN I N THE OFFICE TODAY FOR ABD PAIN . PT SAW DR ESPINOSA . A CT ABD WAS DONE THAT SHOWED COLONIC NARROWING OF THE ASCENDING COLON WITH ENLARGED LYMPH NODES . UNDERLYING LESION CANNOT BE EXCLUDED . COLONSCOPY IS RECOMMENDED . PT REPORTS NUMEROUS HERNIA REPAIRS THAT HAS USED MESH. Jane Reyes MD [address] [facility], [place] [address], [place], [address], [facility] [employer] [facility] 06/21/2024 12:25:09 06/29/2024 text/html the patient retu rns complaining of bilateral knee pain and bilateral hip trochanteric bursitis type pain we have seen her for these issues chronically it has been 5 months since her last injections. She was trying to get gel shots approved but her insurance has been fighting her over it she is going to give it a few more months in the meantime she would like cortisone injections both knees and both hips we will get new x-rays today of both knees as it has been more than a year since her last x-rays. Both hip x-rays were reviewed today from previous visit these show reactive changes with some hypertrophic bone localized the trochanteric region over the greater trochanters of both hips. She denies any new symptoms no new trauma or injury. She does have significant grinding crepitation both knees has trouble squatting kneeling going up and down stairs she is also very tender over the bilateral trochanteric regions with aching pain but no groin pain no significant osteoarthritis in either hip. New past medical history sheet was reviewed and signed on the intake sheet of today's date drug allergies current medications family social history previous surgical history 10 point review of systems was reviewed and discussed in detail today with the patient. KIRSTIN Barker [address] [facility], [facility] [address], [place], [address], [place] [facility] [employer] 06/29/2024 10:01:06 OBGyn Episode No OBEpisode recorded.
--- OUTSIDE RECORDS SUMMARY | 2024-11-26 22:32 | XMS_ITS | Referral Summary ---
Author Organization [facility] Care Team Providers Care Locker Attendant Name Role Phone Jonny Jarquin MD Primary Care Provider [phone] Jarred Huang MD Unavailable Allergies Active Allergy Reactions Criticality Noted Date Comments Hydromorphone Hcl Unknown 02/21/2019 Medications irbesartan (AVAPRO) 150 mg tablet Take 150 mg by mouth daily 09/30/2020 Active rosuvastatin (CRESTOR) 10 mg tablet Take 10 mg by mouth daily 09/30/2020 Active Active Problems Problem Noted Date Diagnosed Date Subclinical hyperthyroidism 10/29/2020 Assessment & Plan (10/29/2020 4:26 PM STRUCTURAL STEEL ERECTION SUPERVISOR): Will recheck TFTs including free T4, free T3 and TSH If free T4 and free T3 are within normal range even with low TSH, there is no indication for specific treatment for subclinical hyperthyroidism in an otherwise healthy 50 year female Social History Tobacco Use Types Packs/Day Years Used Date Smoking Tobacco: Every Day Vaping Smokeless Tobacco: Never PHQ-2 Answer Date Recorded PHQ-2 Total Score (If total score is 3 or more points, staff should administer the PHQ-9) 0 10/29/2020 Personal Safety Answer Date Recorded Getting School Help Needed Not on file 01/01 Comments Unknown Sex and Gender Information Value Date Recorded Sex Assigned at Not on file Legal Sex Female 6:46 AM STRUCTURAL STEEL ERECTION SUPERVISOR Gender Identity Not on file Sexual Orientation Not on file Last Filed Vital Signs Vital Sign Reading Time Taken Comments Blood Pressure 116/62 10/29/2020 12:32 PM STRUCTURAL STEEL ERECTION SUPERVISOR Pulse 73 10/29/2020 12:32 PM STRUCTURAL STEEL ERECTION SUPERVISOR Temperature - - Respiratory Rate 12 10/29/2020 12:32 PM STRUCTURAL STEEL ERECTION SUPERVISOR Oxygen Saturation - - Inhaled Oxygen Concentration - - Weight 75 kg (165 lb 6.4 oz) 10/29/2020 12:32 PM STRUCTURAL STEEL ERECTION SUPERVISOR Height 161.3 cm (5' 3.5 ) 10/29/2020 12:32 PM CS T Body Mass Index 28.84 10/29/2020 12:32 PM STRUCTURAL STEEL ERECTION SUPERVISOR Plan of Treatment Not on file Insurance [employer] [place] Member Subscriber Plan / Payer (Ef fective 2020-Present) Name:Trista David Relation to Subscriber:Self Name:Trista David Payer ID:[id number] (NAIC) Type:HEALTHCARE/EXCHANGE Address: [place] [id number] Care Teams Locker Attendant Relationship Specialty Start Date End Date Jonny Jarquin MD [address] [place] [address] PCP - General Family Medicine 10/03/20 [place] [address] [address] [place] [address] Consulting Physician Endocrinology Diabetes & Metabolism 10/03/20
--- OUTSIDE RECORDS SUMMARY | 2024-11-26 22:32 | XMS_ITS | Clinical Summary ---
Author Organization [facility] HealthCare Care Team Providers Care Ship'S Electronic Warfare Officer Name Role Phone Jonny Jarquin MD Primary Care Provider Jarred Huang MD Unavailable Allergies Active Allergy Reactions Criticality Noted Date Comments Hydromorphone Hcl Unknown 02/21/2019 Medications irbesartan (AVAPRO) 150 mg tablet Take 150 mg by mouth daily 09/30/2020 Active rosuvastatin (CRESTOR) 10 mg tablet Take 10 mg by mouth daily 09/30/2020 Active Active Problems Problem Noted Date Diagnosed Date Subclinical hyperthyroidism 10/29/2020 Assessment & Plan (10/29/2020 4:26 PM DOCTOR OSTEOPATHIC): Will recheck TFTs including free T4, free T3 and TSH If free T4 and free T3 are within normal range even with low TSH, there is no indication for specific treatment for subclinical hyperthyroidism in an otherwise healthy 50 year female Medical History Medical History Date Comments Hyperlipidemia Hypertension Family History Medical History Relation Name Comments Diabetes Father Hypertension Father Relation Name Status Comments Father Social History Tobacco Use Types Packs/Day Years [...] on file Legal Sex Female 6:46 AM DOCTOR OSTEOPATHIC Gender Identity Not on file Sexual Orientation Not on file Obstetrics History Last Filed Vital Signs Vital Sign Reading Time Taken Comments Blood Pressure 116/62 10/29/2020 12:32 PM DOCTOR OSTEOPATHIC Pulse 73 10/29/2020 12:32 PM DOCTOR OSTEOPATHIC Temperature - - Respiratory Rate 12 10/29/2020 12:32 PM DOCTOR OSTEOPATHIC Oxygen Saturation - - Inhaled Oxygen Concentration - - Weight 75 kg (165 lb 6.4 oz) 10/29/2020 12:32 PM DOCTOR OSTEOPATHIC Height 161.3 cm (5' 3.5 ) 10/29/2020 12:32 PM CS T Body Mass Index 28.84 10/29/2020 12:32 PM DOCTOR OSTEOPATHIC Plan of Treatment Not on file Insurance [place] [employer] Care Teams Ship'S Electronic Warfare Officer Relationship Specialty Start Date End Date Jonny Jarquin MD [address] [place] [address] PCP - General Family Medicine 10/03/20 [place] [address] [address] [place] [address] Consulting Physician Endocrinology Diabetes & Metabolism 10/03/20
--- OUTSIDE RECORDS SUMMARY | 2024-11-26 22:32 | XMS_ITS | CONTINUITY OF CARE DOCUMENT ---
Author Name [email or web address] Address Unknown Organization [facility] Address [address] [place] [address] [address] [place] [address] Phone [phone] Care Team Providers Care Track Repair Supervisor Name Role Phone Abe Braun MD Unavailable EDDIE JOHNSON MD Unavailable [phone] NINA AGUIRRE, MONIQUE Vieyra Unavailable INSURANCE PROVIDERS Payer name Policy type / Coverage type [facility] [employer] party [place] [employer] insurance nfon [id number]
--- NOTE | 2024-11-26 22:50 | ED.ABDPAIN ---
HPI - Abdominal Pain General Chief Complaint: Abdominal Pain <Fabiana Sharma PA-C - Last Filed: 11/27/24 01:59> Stated Complaint: abd pain <Fabiana Sharma PA-C - Last Filed: 11/27/24 01:59> Time Seen by Provider: 11/26/24 22:34 <Fabiana Sharma PA-C - Last Filed: 11/27/24 01:59> History of Present Illness HPI narrative: 54-year-old female with history of hypertension and hyperlipidemia presents to the emergency department for acute onset abdominal pain, N/ V/ D that started at 5:30 p.m. today. Patient reports she has pain diffusely throughout the upper abdomen. She describes the pain as sharp and cramping in nature. She denies dysuria or hematuria, known fever but is endorsing on-call flashes. No chest pain or shortness of breath. Patient reports a remote history of bowel resection due to an incarcerated hernia and two mesh repairs. No recent sick contacts. <Fabiana Sharma PA-C - Last Filed: 11/27/24 01:59> Related Data Allergies/Adverse Reactions: Allergies Allergy/AdvReac Type Severity Reaction Status Date / Time hydromorphone Allergy Intermediate Anaphylaxis Verified 11/26/24 22:55 tramadol Allergy Intermediate Anaphylaxis Verified 11/26/24 22:55 caused by Streptoc <Fabiana Sharma PA-C - Last Filed: 11/27/24 01:59> Review of Systems Review of Systems: All systems reviewed & are unremarkable except as noted in HPI and below <Fabiana Sharma PA-C - Last Filed: 11/27/24 01:59> [facility] Family History Family History: Family History Mother Hypertension Father Family history of diabetes mellitus in first degree relative Family history of heart disease in male family member before age 55 Diabetes mellitus Family history of cardiovascular disease Grandparent Family history of lung cancer <Fabiana Sharma PA-C - Last Filed: 11/27/24 01:59> Social History Social History: Social History Smoking status: Current every day smoker Second hand tobacco smoke exposure: No Smoking end date: 10/18/11 Alcohol intake: current <Fabiana Sharma PA-C - Last Filed: 11/27/24 01:59> Exam Narrative: GENERAL: Ill-appearing, well-nourished, and in no acute distress. HEAD: Normocephalic, atraumatic. EYES: PERRLA and EOMI. ENT: Nares clear, no rhinorrhea or epistaxis. Mucous membranes dry. NECK: Supple. CHEST: Clear to auscultation. No respiratory distress. HEART: Regular rate and rhythm. No murmur heard. Normal peripheral pulses. ABDOMEN: quiet bowel sounds. Abdomen soft with tenderness in the epigastrium, left upper quadrant and right upper quadrant. No rebound, guarding or rigidity. No CVA tenderness EXTREMITIES: Normal range of motion. No edema. SKIN: Warm, dry, no rash. NEURO: No focal deficits. Alert and oriented x3 <Fabiana Sharma PA-C - Last Filed: 11/27/24 01:59> Course [employer]/PA Physician Supervision Patient signed out to me pending her CT scan and an EKG being performed. CT scan as below. No acute surgical process. I did reassess patient at bedside at approximately 2:40 a.m.. She states she is feeling much better although occasionally with a mild abdominal cramping. She notes that she is very thirsty and would love to drink water. We discussed Bentyl as well as oral disintegrating tablets of ondansetron and she is very open and receptive to trying either/both of these at home. We discussed trying to avoid Imodium AD if possible and she and her spouse/partner do verified understanding. I encouraged her to rest and maintain her hydration with fluids including water and could also supplement with Pedialyte or Gatorade. Told her to dilute juice if necessary. She does state that she left to drink 1% milk and I noted that if she has a viral gastroenteritis that is due to rotavirus verses norovirus, these can sometimes transiently cause lactose intolerance so caution her about this and advise that she hold off. Patient discharged home in stable condition. Also gave info about BRAT diet/bland food in DC instructions. <Janene Ríos MD - Last Filed: 11/27/24 02:52> Vital Signs Vital signs: Vital Signs Temperature 97.6 F 11/26/24 22:36 Pulse Rate 91 11/26/24 22:36 Respiratory Rate 26 H 11/26/24 22:36 Blood Pressure 186/93 H 11/26/24 22:36 Pulse Oximetry 100 11/26/24 22:36 Oxygen Delivery Room Air 11/26/24 22:36 Temperature 97.6 F 11/26/24 22:36 Pulse Rate 91 11/26/24 22:36 Respiratory Rate 26 H 11/26/24 22:36 Blood Pressure 186/93 H 11/26/24 22:36 Pulse Oximetry 100 11/26/24 22:36 Oxygen Delivery Room Air 11/26/24 22:36 <Fabiana Sharma PA-C - Last Filed: 11/27/24 01:59> Vital Signs Temperature 97.6 F 11/26/24 22:36 Pulse Rate 91 11/26/24 22:36 Respiratory Rate 26 H 11/26/24 22:36 Blood Pressure 186/93 H 11/26/24 22:36 Pulse Oximetry 100 11/26/24 22:36 Oxygen Delivery Room Air 11/26/24 22:36 Temperature 97.6 F 11/26/24 22:36 Pulse Rate 91 11/26/24 22:36 Respiratory Rate 26 H 11/26/24 22:36 Blood Pressure 186/93 H 11/26/24 22:36 Pulse Oximetry 100 11/26/24 22:36 Oxygen Delivery Room Air 11/26/24 22:36 <Janene Ríos MD - Last Filed: 11/27/24 02:52> MDM - Abdominal Pain MDM Narrative Medical decision making narrative: 54-year-old female with a history of bowel resection due to incarcerated hernia and multiple-appears presents to emergency department for acute onset abdominal pain associated N/V/D for the past 5 hours. Triage vitals with elevated blood pressure and tachypnea, otherwise unremarkable. Patient is afebrile. She is ill appearing on exam and has dry mucous membranes, fluids initiated. She also has tenderness to the upper quadrants and epigastrium. Will obtain lab work, CT abd/pelvis, as well as EKG and troponin given age and risk factors for atypical presentation of ACS, although presentation most consistent with GI etiology. CBC with leukocytosis of 21.6 and hemoconcentration with a hemoglobin of 15.6. Lactic acid within normal limits. Chemistries remarkable for bicarb of 16 with anion gap of 24, BUN of 20. Suspect dehydration, fluids initiated. No electrolyte derangements. UA with elevated specific gravity, no UTI. Viral swabs are negative. Lipase within normal limits. Troponin within normal limits. Patient received 2 L of IV fluids, Zofran, Pepcid and morphine in the ED. Pending CT abdomen/pelvis at time of sign-out to Dr. Ríos. <Fabiana Sharma PA-C - Last Filed: 11/27/24 01:59> Lab Data Result diagrams: 11/26/24 22:50 11/26/24 22:50 <Fabiana Sharma PA-C - Last Filed: 11/27/24 01:59> Labs: Lab Results 11/26/24 11/27/24 11/27/24 Range/Units 22:50 01:01 01:36 WBC 21.6 H (4.5-10.0) K/mm3 RBC 4.60 (4.2-5.4) M/mm3 Hgb 15.6 H (12.0-15.0) g/dL Hct 44.7 (37.0-47.0) % MCV 97.2 (80-100) fl MCH 33.9 (26-34) pg MCHC 34.9 (32-36) g/dl RDW 12.8 (11.5-14.5) % Plt Count 357 (150-375) k/mm3 MPV 8.7 (7.4-10.4) fl Immature Gran % (Auto) 0.4 (0-0.5) % Neut % (Auto) 90.2 H (45.5-73.1) % Lymph % (Auto) 4.7 L (18.3-44.2) % [place] % (Auto) 4.0 (2.6-8.5) % Eos % (Auto) 0.4 (0-4.4) % Baso % (Auto) 0.3 (0.2-1.2) % Lymph # (Auto) 1.02 (0.9-3.2) K/mm3 [place] # (Auto) 0.9 H (0.1-0.6) K/mm3 Eos # (Auto) 0.1 (0-0.3) K/mm3 Baso # (Auto) 0.1 (0.0-0.1) K/mm3 Abs Immat Gran (auto) 0.08 H (0.00-0.031) K/mm3 Absolute Neuts (auto) 19.5 H (1.3-6.7) K/mm3 Absolute Nucleated RBC 0.000 (0.0-0.012) K/mm3 Nucleated RBC % 0.0 (0.0-0.2) % Sodium 138 (137-145) mmol/L Potassium 4.6 (3.4-5.0) mmol/L Chloride 98 (98-107) mmol/L Carbon Dioxide 16 L (22-30) mmol/L Anion Gap 24 H (4-12) mmol/L BUN 20 H (7-17) mg/dL Creatinine 0.62 L (0.7-1.0) mg/dL Estim Creat Clear Calc 84 ml/min Estimated GFR > 60 (59 - ) Glucose 134 H (65-110) mg/dL Lactic Acid 1.7 (0.7-2.0) mmol/L Calcium 10.3 H (8.4-10.2) mg/dL Magnesium 1.9 (1.6-2.3) mg/dL Total Bilirubin 0.6 (0.2-1.3) mg/dL AST 31 (14-36) U/L ALT 49 H (6-35) U/L Alkaline Phosphatase 100 (38-126) U/L Troponin I 0.015 (0.000-0.034) ng/mL Total Protein 9.0 H (6.3-8.2) g/dL Albumin 5.6 H (3.5-5.1) g/dL Lipase 121 (23-300) U/L Urine Color Yellow (Yellow) Urine Appearance Clear (Clear) Urine pH 6.5 (5.0-9.0) Ur Specific [place] > 1.045 H (1.001-1.035) Urine Protein Negative (Negative) mg/dL Urine Glucose (UA) Negative (Negative) mg/dL Urine Ketones Negative (Negative) mg/dL Ur Blood (Man) Negative (Negative) Urine Nitrate Negative (Negative) Urine Bilirubin Negative (Negative) Urine Urobilinogen 0.2 (<2.0) mg/dL Leukocyte Esterase Rfl Negative (Negative) NERI/UL Influenza A (RT-PCR) Negative (Negative) Influenza B (RT-PCR) Negative (Negative) RSV (RT-PCR) Negative (Negative) SARS-CoV-2 RNA (RT-PCR) Negative (Negative) <Fabiana Sharma PA-C - Last Filed: 11/27/24 01:59> Lab Results 11/26/24 11/27/24 11/27/24 Range/Units 22:50 01:01 01:36 WBC 21.6 H (4.5-10.0) K/mm3 RBC 4.60 (4.2-5.4) M/mm3 Hgb 15.6 H (12.0-15.0) g/dL Hct 44.7 (37.0-47.0) % MCV 97.2 (80-100) fl MCH 33.9 (26-34) pg MCHC 34.9 (32-36) g/dl RDW 12.8 (11.5-14.5) % Plt Count 357 (150-375) k/mm3 MPV 8.7 (7.4-10.4) fl Immature Gran % (Auto) 0.4 (0-0.5) % Neut % (Auto) 90.2 H (45.5-73.1) % Lymph % (Auto) 4.7 L (18.3-44.2) % [place] % (Auto) 4.0 (2.6-8.5) % Eos % (Auto) 0.4 (0-4.4) % Baso % (Auto) 0.3 (0.2-1.2) % Lymph # (Auto) 1.02 (0.9-3.2) K/mm3 [place] # (Auto) 0.9 H (0.1-0.6) K/mm3 Eos # (Auto) 0.1 (0-0.3) K/mm3 Baso # (Auto) 0.1 (0.0-0.1) K/mm3 Abs Immat Gran (auto) 0.08 H (0.00-0.031) K/mm3 Absolute Neuts (auto) 19.5 H (1.3-6.7) K/mm3 Absolute Nucleated RBC 0.000 (0.0-0.012) K/mm3 Nucleated RBC % 0.0 (0.0-0.2) % Sodium 138 (137-145) mmol/L Potassium 4.6 (3.4-5.0) mmol/L Chloride 98 (98-107) mmol/L Carbon Dioxide 16 L (22-30) mmol/L Anion Gap 24 H (4-12) mmol/L BUN 20 H (7-17) mg/dL Creatinine 0.62 L (0.7-1.0) mg/dL Estim Creat Clear Calc 84 ml/min Estimated GFR > 60 (59 - ) Glucose 134 H (65-110) mg/dL Lactic Acid 1.7 (0.7-2.0) mmol/L Calcium 10.3 H (8.4-10.2) mg/dL Magnesium 1.9 (1.6-2.3) mg/dL Total Bilirubin 0.6 (0.2-1.3) mg/dL AST 31 (14-36) U/L ALT 49 H (6-35) U/L Alkaline Phosphatase 100 (38-126) U/L Troponin I 0.015 (0.000-0.034) ng/mL Total Protein 9.0 H (6.3-8.2) g/dL Albumin 5.6 H (3.5-5.1) g/dL Lipase 121 (23-300) U/L Urine Color Yellow (Yellow) Urine Appearance Clear (Clear) Urine pH 6.5 (5.0-9.0) Ur Specific [place] > 1.045 H (1.001-1.035) Urine Protein Negative (Negative) mg/dL Urine Glucose (UA) Negative (Negative) mg/dL Urine Ketones Negative (Negative) mg/dL Ur Blood (Man) Negative (Negative) Urine Nitrate Negative (Negative) Urine Bilirubin Negative (Negative) Urine Urobilinogen 0.2 (<2.0) mg/dL Leukocyte Esterase Rfl Negative (Negative) NERI/UL Influenza A (RT-PCR) Negative (Negative) Influenza B (RT-PCR) Negative (Negative) RSV (RT-PCR) Negative (Negative) SARS-CoV-2 RNA (RT-PCR) Negative (Negative) <Janene Ríos MD - Last Filed: 11/27/24 02:52> Imaging Data Radiologist's impression: CT Abd and Pelvis with Contrast: Comparison made to CT abdomen/pelvis dated August 26, 2022. Enteric anastomosis within the small bowel of the lower anterior abdomen with patulous appearance measuring up to 4.3 cm in diameter which may relate to denervation atrophy. No evidence of bowel obstruction. Liquid colonic contents. Findings may relate to sequela of diarrheal illness. 2.6 cm cyst within the peripheral right lobe of the liver. This is not necessarily are part of the follow up (sic?). No other acute findings. <Janene Ríos MD - Last Filed: 11/27/24 02:52> Discharge Plan Discharge Clinical Impression: Gastroenteritis, Liver cyst <Fabiana Sharma PA-C - Last Filed: 11/27/24 01:59> Patient Disposition: Home, Self-Care <GIOVANI Gibbs Last Filed: 11/27/24 01:59> Condition: Stable <GIOVANI Gibbs Last Filed: 11/27/24 01:59> Instructions: Antibiotic Form, Gastroenteritis (ED), Acute Nausea and Vomiting (DC), Acute Diarrhea (ED) <Fabiana Sharma PA-C - Last Filed: 11/27/24 01:59> Additional Instructions: As we discussed, you have gastroenteritis which is usually viral. No role for antibiotics. Try to avoid using Imodium AD as this needs to run its course. Rest and maintain your hydration. You can use Gatorade and Pedialyte (does not need to be name brand). If you are going to use juice though, I recommend diluting it because sometimes they contain a lot of sugar. Avoid milk as this can aggrevate symptoms transiently. You can consider using the B-R-A-T diet (bananas, rice, applesauce, toast), or in general eating bland foods. Follow-up with primary care physician. Return to the emergency department with any new or worsening symptoms. You are being prescribed a medication for nausea as well as 1 for GI spasms/cramps. <Fabiana Sharma PA-C - Last Filed: 11/27/24 01:59> Patient Language: German <Fabiana Sharma PA-C - Last Filed: 11/27/24 01:59> Prescriptions: New ondansetron 4 mg tablet,disintegrating 4 mg PO Q8H PRN (Reason: nausea and vomiting) Qty: 10 0RF dicyclomine 10 mg capsule 10 mg PO BID PRN (Reason: abdominal pain) Qty: 10 0RF <Fabiana Sharma PA-C - Last Filed: 11/27/24 01:59> Follow-up/Referrals: Peyman Richardson DO [Physician] - <Fabiana Sharma PA-C - Last Filed: 11/27/24 01:59> Stand Alone Forms: Work/School Release IP <Fabiana Sharma PA-C - Last Filed: 11/27/24 01:59> Time of Disposition: 02:48 <Fabiana Sharma PA-C - Last Filed: 11/27/24 01:59> 02:48 <Janene Ríos MD - Last Filed: 11/27/24 02:52>
[2024-11-26] MEDS: FAMOTIDINE 20 MG/2 ML VIAL IV PUSH (22:52)
[2024-11-26] MEDS: DICYCLOMINE HCL INJ 20 MG/2 ML VIAL IM (22:52)
[2024-11-26] MEDS: ONDANSETRON INJ 4 MG/2 ML VIAL IV PUSH (22:52)
[2024-11-26] MEDS: SODIUM CHLORIDE 0.9% IV 1,000 ML 999 ML (22:53)
[2024-11-26 22:55] LABS: Basophils Absolute Auto 0.1 K/mm3 (0.0-0.1); Basophils Percent Auto 0.3 % (0.2-1.2); Eosinophils Absolute Auto 0.1 K/mm3 (0-0.3); Eosinophils Percent Auto 0.4 % (0-4.4); Hematocrit 44.7 % (37.0-47.0); Hemoglobin 15.6 g/dL (12.0-15.0); Immature Granulocyte Absolute 0.08 K/mm3 (0.00-0.031); Immature Granulocyte Percent A 0.4 % (0-0.5); Lymphocytes Absolute Auto 1.02 K/mm3 (0.9-3.2); Lymphocytes Percent Auto 4.7 % (18.3-44.2); Mean Corpuscular HGB Conc 34.9 g/dl (32-36); Mean Corpuscular Hemoglobin 33.9 pg (26-34); Mean Corpuscular Volume 97.2 fl (80-100); Mean Platelet Volume 8.7 fl (7.4-10.4); Monocytes Absolute Auto 0.9 K/mm3 (0.1-0.6); Neutrophils Absolute Auto 19.5 K/mm3 (1.3-6.7); Neutrophils Percent Auto 90.2 % (45.5-73.1); Platelet Count Result 357 k/mm3 (150-375); Red Cell Distribution Width 12.8 % (11.5-14.5); White Blood Count 21.6 K/mm3 (4.5-10.0)
--- OUTSIDE RECORDS SUMMARY | 2024-11-26 23:16 | XMS_ITS | Continuity of Care Document ---
Author Organization [facility] Address [address] [place] [address] [place] [address] Phone Care Team Providers Care Science Instructor Name Role Phone Jonny Jarquin MD Unavailable Unavailable Allergies, Adverse Reactions, Alerts Substance Reaction Status Criticality HYDROMORPHONE HCL Active No Informa tion Medications Medication Instructions Dosage Effective Dates (start - stop) Status Comments Crestor 10 mg tablet take 1 tablet by or al route every day 10 MG - Active irbesartan 150 mg tablet take 1 tablet by oral route every day 150 MG - Active Problems Condition Type Effective Dates (start - stop) Clini peter Status Comments No Known Problems Procedures Procedure Date OFFICE/OUTPATIENT VISIT, EST PREV VISIT, EST, AGE 40-64 OFFICE/OUTPATIENT VISIT, EST OFFICE/OUTPATIENT VISIT, EST OFFICE/OUTPATIENT VISIT, EST OFFICE/OUTPATIENT VISIT, EST PREV VISIT, NEW, AGE 40-64 OFFICE/OUTPATIENT VISIT, NEW Advance Directives Directive Yes / No Effective Date File Name No Information Encounters Encounter Description Practice Location Reason(s) For Visit Diagnoses Date Provider Providers Copied on Encounter [facility], [address] [place], [id number], [place] tel:[phone] [facility] No Information 1 Britton Fuller. [address], [place], [place], [address] , [place]. tel:[phone] OFFICE/OUTPA TIENT VISIT, EST [facility], [address], [place], [place], [id number], [place] tel:[phone] [facility] Medicine HLP (chief complaint) thyroid (chief complaint) HTN (chief complaint) glucose1 (chief complaint) Disorder of thyroid, unspecifiedEssentia l (primary) hypertensionHyperli pidemiaHyperglycemi a 0 Britton Fuller. [address], [place], [place], [address] , [place]. [phone] Referring Provider: Jonny Jarquin, [address], [place], [place], [address]. tel:[phone] PREV VISIT, EST, AGE 40-64 [facility], [address], [place], [place], [id number], [place] tel:[phone] [facility] Physical (chief complaint) Encounter for general adult medical exam w abnormal findingsHyperlipide miaHyperglycemiaDis order of thyroid, unspecifiedVentral herniaEssential (primary) hypertension 0 Britton Fuller. [address], [place], [place], [address] , [place]. tel:[phone] Referring Provider: [address]arshil [address], [place], [place], [address]. tel:[phone] OFFICE/OUTPA TIENT VISIT, [facility], [address], [place], [place], [address], [place] tel:[phone] [facility] Medicine thyroid1 (chief complaint) postmeno1 (chief complaint) HTN (chief complaint) glucose1 (chief complaint) Essential (primary) hypertensionAmenorr heaDisorder of thyroid, unspecifiedHypergly cemia 9 Britton Fuller. [address], [place], [place], [address] , [place]. tel:[phone] Referring Provider: [address], [place], [place], [address]. tel:[phone] OFFICE/OUTPA TIENT VISIT, [facility], [address], [place], [place], [address], tel:[phone] [facility] Medicine HTN (chief complaint) weight gain1 (chief complaint) amenorrhea 1 (chief complaint) thyroid1 (chief complaint) AmenorrheaDisorder of thyroid, unspecifiedEssentia l (primary) hypertensionAbnorma l weight gain 9 Britton Fuller. [address], [place], [place], [address] , [place]. tel:[phone] Referring Provider: [address], [place], [place], [address]. tel:[phone] OFFICE/OUTPA TIENT VISIT, EST [facility], [address], [address], [place] tel:[phone] [facility] HTN (chief complaint) thyroid1 (chief complaint) HLP (chief complaint) irregular bleeding1 (chief complaint) back pain1 (chief complaint) Essential (primary) hypertensionDisorde r of thyroid, unspecifiedHyperlip idemiaIrregular periodOther spondylosis, lumbar region 9 Britton Fuller. [address] [facility] [place], [address] , [place]. tel:[phone] Referring Provider: Harshil Yi [facility] [address], [place], [place], [address]. tel:[phone] PREV VISIT, NEW, AGE 40-64 [facility], [address] [place], [address], [place] tel:[phone] [facility] Physical (chief complaint) Encounter for general adult medical exam w abnormal findingsEssential (primary) hypertensionIrregul ar period 9 Britton Fuller. [address], [place], [place], [address] , [place]. tel:[phone] Referring Provider: [address]il [address], [place], [place], [address]. tel:[phone] Family History Family Member Type Diagnosis Age At Onset Father Problem (finding) of 62 for DM and d ementia Brother Problem (finding) of 53 for heart disease (Cause Of ) Mother Problem (finding) COPD Mother Problem (finding) Hypertension Mother Problem (finding) Alive and well Payers Payer name Insurance type Covered alliance party ID Authoriza tion(s) No Information Social History Type Description Quantity Date Captured Comments Alcohol Use Details Unknown Caffeine Use Details Unknown Tobacco Use Status No Information Smoking Status No Information Sex Female Chief Complaint And Reason For Visit No Information Plan Of Treatment Date Type Action Status Goal Tobacco cessation counseling completed Goal Special diet education compl eted Goal Special diet education compl eted Goal Tobacco cessation counseling completed Goal Special diet education compl eted Goal Tobacco cessation counseling completed Goal Tobacco cessation counseling completed Goal Special diet education compl eted Referral Ordered: Deepika Moseley -Allopathic & Osteopathic Physicians : Internal Medicine : Endocrinology, Diabetes & Metabolism (related to Disorder of thyroid, unspecified) ordered Referral Referred To: Deepika Moseley [address] [facility]
[address], [place] [id number] Ordered: Referrals: Allopathic & Osteopathic Physicians : Internal Medicine : Endocrinology, Diabetes & Metabolism. Deepika Moseley. Evaluate and treat ordered Referral Ordered: MAMMOGRAM, SCREENING ordered Referral Ordered: US THYROID ordered Referral Ordered: Pain Medicine (related to Other spondylosis, lumbar region) ordered Referral Ordered: Referrals: Pain Medicine. Evaluate and treat ordered History Of Present Illness Encounter Date Complaint History Of Prese nt Illness glucose1 Pt denies any po lyuria, polydipsia .Her glucose and A1c ok HTN Pt has HTn Pt ta kes irbesartan and her bp is around 130/80 at home thyroid Pt has persisten t suppressed tsh. Her T4 is ok. lab missed T3 Pt denies any palpitation, sweaty, weight loss ,chest pain, etc Pt denies any dysphagia or neck pain .Pt has not done thyroid ultrasound yet HLP Pt has persisten t HLP Pt is not on any diet and she is not very active .She does have family history of CAD. PT denies any chest pain Physical Pt needs annual physical pt has HTn, Pt takes irbesartan and her BP is ok around 130/[address] [facility]. Pt has history of ventral hernia surgery s/p repair with mesh two years ago. Pt states that she recently noticed some bulging and pain around the surgical scar area since two weeks ago which currently resolved with some fiber Pt denies any constipation or diarrhea Pt denies any nausea, vomiting. Pt denies any pain currently Pt also stopped doing sit up since last week. Pt is not concerned about it and she does not want to do anything at this point. Pt has subclinical hyperthyroidism Pt denies any chest pain or headache .Pt denies any dysphagia or neck pain. glucose1 Patient has mild ly elevated glucose. Patient denies polyuria polydipsia. Patient did not fasting. HTN Pt has HTn. Her BP is stable. pt denies any chest pain or headache. Pt is on irbesartan postmeno1 Pt is postmeno a ccording to lab. Estrogen pending Pt has hot flash. Pt is taking estroven but is not helping thyroid1 Pt has low TSH. Her T4 is ok. pt denies any chest pain or headache. TPo is ok thyroid1 Pt has abnormal TSH. pt has not done repeat TSh yet. pt denies any dysphagia pt denies any trouble with swallowing amenorrhea1 Pt has not had p eriod for 3-4 months pt did spot and had negative endometrial biopsy recently. Pt feels hot flash and feels irritable weight gain1 Pt has gained 20 pounds since last 5 years Pt has not been very active Pt has not been very good with diet Pt drinks 4 beers per day. HTN Pt has HTn Pt ta kes clonidine. her BP is borderline Pt denies any chest pain or headache back pain1 Pt has chronic l ow back and bilateral hip pain for 6 months. Pt denies any injury pt c/o right sciatica Pt denies any numbness or any loss of bladder control Pt denies any loss of bladder control. Pt has sharp/dull ache daily. Pt states that activity or sit down for long all make it worse irregular bleeding1 Pt has not h ad any vaginal bleeding since 6 weeks ago. Pt had negative endometrial biopsy Pt was told that she is going through the changes HLP Pt has mildly hi gh TC and TG pt drinks 4 beers per day and she eats a lot of carb. thyroid1 Pt has borderlin e low tsh but T4 ok Pt denies any family history of thyroid issue Pt denies any chest pain, palpitation. Pt does have hot flash due to perimenopausal stage currently. Pt denies any dysphagia or any difficulty with swallowing HTN Pt has been taki ng clonidine for HTN for several years. Her BP at home is around 125/70. Pt denies any chest pain or headache Physical Pt needs annual physical. Pt has HTN. Pt takes clonidine 0.1 mg BID and her BP is around 130/70 at home. Pt is very anxious lately due to abnormal pap smears. Pt was found to have a cervical polyp and she supposes to have biopsy soon Pt is very anxious about it. Pt denies any vaginal bleeding. Pt denies any abdominal/pelvic pain. Pt denies any other complaints Instructions Date Instruction Additional Infor cadence Special diet education Related t o Body mass index (BMI) 28.0-28.9, adult Increase activity. Related to Es sential (primary) hypertension Follow a low sodium diet. Relate d to Essential (primary) hypertension Increase activity. Related to Es sential (primary) hypertension Follow a low sodium diet. Relate d to Essential (primary) hypertension Weight management Related to Lise norrhea Increase physical activity Relat ed to Amenorrhea Special diet education Related t o Body mass index (BMI) 28.0-28.9, adult Follow a low sodium diet. Relate d to Essential (primary) hypertension Increase activity. Related to Es sential (primary) hypertension Special diet education Related t o Body mass index (BMI) 28.0-28.9, adult Special diet education Related t o Body mass index (BMI) 28.0-28.9, adult Increase physical activity Relat ed to Encounter for general adult medical exam w abnormal findings Weight management Related to Enc ounter for general adult medical exam w abnormal findings Assessments Type Assessment Date No Information
--- OUTSIDE RECORDS SUMMARY | 2024-11-26 23:16 | XMS_ITS | CONTINUITY OF CARE DOCUMENT ---
Author Name [email or web address] Address Unknown Organization [facility] Address [address] [place] [address] [address] [place] [address] Phone [phone] Care Team Providers Care Lap Machine Operator Name Role Phone Abe Braun MD Unavailable [phone] EDDIE JOHNSON MD Unavailable [phone] NINA AGUIRRE, MONIQUE Vieyra Unavailable INSURANCE PROVIDERS Payer name Policy type / Coverage type [facility] democrat [place] [employer] insurance [id number]
--- OUTSIDE RECORDS SUMMARY | 2024-11-26 23:16 | XMS_ITS | Clinical Summary ---
Author Organization [facility] HealthCare Care Team Providers Care Swimming Pool Plasterer Helper Name Role Phone Jonny Jarquin MD Primary Care Provider [phone] Jarred Huang MD Unavailable Allergies Active Allergy Reactions Criticality Noted Date Comments Hydromorphone Hcl Unknown 02/21/2019 Medications irbesartan (AVAPRO) 150 mg tablet Take 150 mg by mouth daily 09/30/2020 Active rosuvastatin (CRESTOR) 10 mg tablet Take 10 mg by mouth daily 09/30/2020 Active Active Problems Problem Noted Date Diagnosed Date Subclinical hyperthyroidism 10/29/2020 Assessment & Plan (10/29/2020 4:26 PM SOLAR TECH): Will recheck TFTs including free T4, free [...] on file Legal Sex Female 6:46 AM SOLAR TECH Gender Identity Not on file Sexual Orientation Not on file Obstetrics History Last Filed Vital Signs Vital Sign Reading Time Taken Comments Blood Pressure 116/62 10/29/2020 12:32 PM SOLAR TECH Pulse 73 10/29/2020 12:32 PM SOLAR TECH Temperature - - Respiratory Rate 12 10/29/2020 12:32 PM SOLAR TECH Oxygen Saturation - - Inhaled Oxygen Concentration - - Weight 75 kg (165 lb 6.4 oz) 10/29/2020 12:32 PM SOLAR TECH Height 161.3 cm (5' 3.5 ) 10/29/2020 12:32 PM CS T Body Mass Index 28.84 10/29/2020 12:32 PM SOLAR TECH Plan of Treatment Not on file Insurance [employer] [place] Care Teams Swimming Pool Plasterer Helper Relationship Specialty Start Date End Date Jonny Jarquin MD [address] [place] [address] PCP - General Family Medicine 10/03/20 [place] [address] [place] [address] Consulting Physician Endocrinology Diabetes & Metabolism 10/03/20
--- OUTSIDE RECORDS SUMMARY | 2024-11-26 23:16 | XMS_ITS | Referral Summary ---
Author Organization [facility] HealthCare Care Team Providers Care Cottage Master Name Role Phone Jonny Jarquin MD Primary [...] 10/29/2020 Assessment & Plan (10/29/2020 4:26 PM CASE MONITOR): Will recheck TFTs including free T4, free [...] on file Legal Sex Female 6:46 AM CASE MONITOR Gender Identity Not on file Sexual Orientation Not on file Last Filed Vital Signs Vital Sign Reading Time Taken Comments Blood Pressure 116/62 10/29/2020 12:32 PM CASE MONITOR Pulse 73 10/29/2020 12:32 PM CASE MONITOR Temperature - - Respiratory Rate 12 10/29/2020 12:32 PM CASE MONITOR Oxygen Saturation - - Inhaled Oxygen Concentration - - Weight 75 kg (165 lb 6.4 oz) 10/29/2020 12:32 PM CASE MONITOR Height 161.3 cm (5' 3.5 ) 10/29/2020 12:32 PM CS T Body Mass Index 28.84 10/29/2020 12:32 PM CASE MONITOR Plan of Treatment Not on file Insurance [employer] [place] Member Subscriber Plan / Payer (Ef fective 2020-Present) Name:Trista David Relation to Subscriber:Self Name:Trista David Payer ID:[id number] (NAIC) Type:HEALTHCARE/EXCHANGE Address: [place] [id number] Care Teams Cottage Master Relationship Specialty Start Date End Date Jonny Jarquin MD [address] [place] [address] PCP - General Family Medicine 10/03/20 [place] [address] [address] [place] [address] Consulting Physician Endocrinology Diabetes & Metabolism 10/03/20
[2024-11-26 23:22] LABS: Alanine Aminotransferase 49 U/L (6-35); Albumin Level 5.6 g/dL (3.5-5.1); Alkaline Phosphatase 100 U/L (38-126); Anion Gap 24 mmol/L (4-12); Aspartate Amino Transferase 31 U/L (14-36); Bilirubin,Total 0.6 mg/dL (0.2-1.3); Blood Urea Nitrogen 20 mg/dL (7-17); Calcium 10.3 mg/dL (8.4-10.2); Carbon Dioxide 16 mmol/L (22-30); Chloride 98 mmol/L (98-107); Estimated CRCL calculation 84 ml/min; Estimated Glomerular Filt Rate > 60; Glucose 134 mg/dL (65-110); Lipase 121 U/L (23-300); Magnesium 1.9 mg/dL (1.6-2.3); Potassium 4.6 mmol/L (3.4-5.0); Sodium 138 mmol/L (137-145)
[2024-11-26 23:31] LABS: Influenza A QL RT-PCR Negative (Negative); Influenza B QL RT-PCR Negative (Negative); RSV RNA, RT-PCR Negative (Negative); SARS-CoV-2 RNA PCR Negative (Negative); Troponin I 0.015 ng/mL (0.000-0.034)
[2024-11-26] MEDS: LACTATED RINGERS 1,000 ML 999 ML IV CONT (23:39)
[2024-11-26] MEDS: MORPHINE SULFATE (*CRX) 4 MG/ML INJ IV PUSH (23:41)
[2024-11-27] VITALS (13 sets, daily range): BP systolic 130; BP diastolic 78; PULSE 104–122; RESP 14–24; O2SAT 97–100
[2024-11-27 01:17] LABS: Lactic Acid Reflex 1.7 mmol/L (0.7-2.0)
[2024-11-27 01:42] LABS: Add Urine Microscopic? NO; Appearance Urine Clear (Clear); Bilirubin Urine Negative (Negative); Blood Urine Negative (Negative); Color Urine Yellow (Yellow); Glucose Urine UA Negative (Negative); Ketones Urine Negative (Negative); Leukocyte Esterase Ur Negative LEU/UL (Negative); Nitrate Urine Negative (Negative); Protein Urine Negative (Negative); Specific Grav Ur > 1.045 (1.001-1.035); Urobilinogen Urine 0.2 mg/dL (<2.0); pH Urine 6.5 (5.0-9.0)
--- NOTE | 2024-11-27 02:00 | ECG_ITS ---
Test Date: 2024-11-27 02:20:35 Measurements Intervals [place] Rate: 114 P: 42 NE: 140 QRS: 56 QRSD: 70 T: 50 QT: 346 QTc: 477 Interpretive Statements SINUS TACHYCARDIA WITH OCCASIONAL SUPRAVENTRICULAR PREMATURE COMPLEXES ABNORMAL ECG No previous ECG available for comparison Electronically Signed On 11-27-2024 08:01:11 SUPERVISOR METAL [employer]ANGING by Renato Simmons D.O.
[2024-11-27] MEDS: DICYCLOMINE HCL 10 MG CAPSULE PO (02:54)
== END 2024-11-27 03:04 | disposition home or self-care (01) ==
PROVIDERS: Physician Assistant; Emergency Provider Student in an Organized Health Care Education/Training Program; PCP Nurse Practitioner
DX: K52.9 Noninfective gastroenteritis and colitis, unspecified (principal); K76.89 Other specified diseases of liver; Z20.822 Contact with and (suspected) exposure to COVID-19; I10 Essential (primary) hypertension; E78.5 Hyperlipidemia, unspecified; Z87.891 Personal history of nicotine dependence; Z90.49 Acquired absence of other specified parts of digestive tract; R00.0 Tachycardia, unspecified; I49.1 Atrial premature depolarization
CPT/HCPCS: 36415; 74177; 80053; 81003; 83605; 83690; 83735; 84484; 85025; 87637; 93005; 96361; 96372; 96374; 96375; 99284; A9270; J0500; J2270; J2405; J7030; J7120; Q9967